=== PATIENT | female | born 1980 | race Two or more races ===

== ENCOUNTER 2019-01-17 19:51 | Emergency (ER) | payer MEDICAID ==
[~2019-01-17] VITALS: Ht 157.5 cm; Wt 72.6 kg
[2019-01-17 19:56] VITALS: Ht 157.5 cm; Wt 72.6 kg
[2019-01-17 20:40] VITALS: BP 152/97
== END 2019-01-17 20:40 | disposition home or self-care (01) ==
LOC: ED 19:51
DX: N39.0 Urinary tract infection, site not specified (principal)